=== PATIENT | female | born 1960 | race Caucasian/White ===

== ENCOUNTER 2018-09-23 13:44 | Emergency (ER) | payer MEDICAID, OTHER ==
[~2018-09-23] VITALS: Ht 165.1 cm; Wt 86.3 kg
--- NOTE | 2018-09-23 13:46 | NUR ---
Called patient for triage, patient went to the restroom despite being asked by registration to wait for triage.
--- NOTE | 2018-09-23 13:54 | NUR ---
Patient denies numbness or tingling, no focal weakness. Patient states "I can just feel the buzzing under my skin".
--- NOTE | 2018-09-23 13:55 | NUR ---
EKG performed in triage.
--- NOTE | 2018-09-23 14:08 | NUR ---
SUPPLY CHAIN SYSTEMS MANAGER: PT TO ROOM FROM LOBBY VIA W/C
[2018-09-23] MEDS ORDERED: LORazepam 1MG TABLET ONE (14:23)
[2018-09-23] MEDS ORDERED: ONDANSETRON ODT 4 MG ONE (14:23)
[2018-09-23] MEDS ORDERED: ONDANSETRON ODT 4 MG PO ONE (14:30)
[2018-09-23] MEDS ORDERED: LORazepam 1MG TABLET PO ONE (14:30)
--- NOTE | 2018-09-23 14:32 | NUR ---
THIS FLOAT RN AT BEDSIDE TO PROVIDE PT WITH A WARM BLANKET PER PT REQUEST. PT REFUSING LAB DRAW AT THIS TIME STATING, "I'M TOO ANXIOUS FOR THAT." MADE AWARE.
--- NOTE | 2018-09-23 15:06 | NUR ---
pt laying on gurney awake & anxious (but "feels a little better after the ativan"), responds approp to staff, NAD, comfort measures provided, call light within reach.
--- NOTE | 2018-09-23 15:16 | NUR ---
pt to CT
[2018-09-23 15:24] LABS: BASOPHILS # (AUTO) 0.03 x10^3/uL (0-0.1); BASOPHILS % (AUTO) 0 % (0-1); EOSINOPHILS # (AUTO) 0.11 x10^3/uL (0-0.4); EOSINOPHILS % (AUTO) 1 % (1-7); LYMPHOCYTES # (AUTO) 2.47 x10^3/uL (1-3.4); LYMPHOCYTES % (AUTO) 30 % (22-44); MD NO; MEAN CORPUSCULAR HEMOGLOBIN 32.2 pg (27.0-34.8); MEAN CORPUSCULAR HGB CONC 33.1 g/dL (32.4-35.8); MEAN CORPUSCULAR VOLUME 97.1 fL (80-100); MEAN PLATELET VOLUME 7.4 fL (7.4-10.4); MONOCYTES # (AUTO) 0.65 x10^3/uL (0.2-0.8); MONOCYTES % (AUTO) 8 % (2-9); NEUTROPHILS # (AUTO) 4.87 x10^3/uL (1.8-6.8); NEUTROPHILS % (AUTO) 60 % (42-75); PLATELET COUNT 390 x10^3/uL (130-400); RED BLOOD COUNT 4.79 x10^6/uL (3.82-5.3)
--- NOTE | 2018-09-23 15:25 | NUR ---
pt returned from CT
[2018-09-23 15:32] LABS: ALBUMIN 3.8 g/dL (3.4-5.0); ANION GAP 8 mmol/L (5-15); CALCIUM 8.9 mg/dL (8.5-10.1); CHLORIDE 106 mmol/L (98-107); CREATININE 0.65 mg/dL (0.55-1.02)
[2018-09-23 16:06] VITALS: BP 131/78
--- NOTE | 2018-09-23 16:07 | NUR ---
pt continues laying on gurney awake & anxious, able to doze off at times, responds approp to staff, NAD, comfort measures provided, call light within reach.
--- NOTE | 2018-09-23 16:27 | NUR ---
Patient given discharge instructions and they have confirmed that they understand the instructions. Patient ambulatory with steady gait.
== END 2018-09-23 16:29 | disposition home or self-care (01) ==
LOC: ED 16:23
DX: F29 Unspecified psychosis not due to a substance or known physiological condition (principal); G62.9 Polyneuropathy, unspecified; F17.200 Nicotine dependence, unspecified, uncomplicated; Z88.5 Allergy status to narcotic agent
CPT/HCPCS: 36415; 70450; 80048; 82040; 85025; 93005; 99284; Q0162

== ENCOUNTER 2018-10-09 08:09 | Emergency (ER) | payer MEDICAID, MEDICARE ==
[~2018-10-09] VITALS: Ht 165.1 cm; Wt 83.8 kg
[2018-10-09 08:12] VITALS: BP 122/70
== END 2018-10-09 10:14 | disposition home or self-care (01) ==
LOC: ED 09:19
DX: K59.00 Constipation, unspecified (principal); R42 Dizziness and giddiness; R10.9 Unspecified abdominal pain; R11.0 Nausea; F41.1 Generalized anxiety disorder; Z00.00 Encounter for general adult medical examination without abnormal findings
CPT/HCPCS: 99282

== ENCOUNTER 2019-01-23 12:35 | Emergency (ER) | payer MEDICARE, MEDICAID ==
[~2019-01-23] VITALS: Ht 165.1 cm; Wt 88.0 kg
[~2019-01-23 12:35] MED LIST: ARIP20TA5 PO; FLUO20CA19 PO; FLUO40CA9 PO; GABA-826 PO
[2019-01-23 12:48] VITALS: BP 130/72
--- NOTE | 2019-01-23 13:03 | NUR ---
THIS IS A 58 YO FEMALE COMING IN FOR "I HAVE GENERALIZED ANXIETY DISORDER, AND I'M HAVING A PANIC ATTACK. I FEEL LIKE I HAVE LICE ON MY BODY, AND BUGS CRAWLING ON ME". PATIENT STATES SHE HAS COMMON COLD-LIKE SYMPTOMS FOR THE PAST WEEK. PATIENT STATES SHE WAS HOMELESS FOR THE PAST TEN YEARS, BUT IS CURRENTLY STAYING AT THE [facility]. PATIENT STATES SHE IS CURRENTLY DETOXING FROM ALCOHOL, STATES SHE DRANK A BEER TODAY. PATIENT DOES NOT PRESENT WITH ETOH WITHDRAWL SYMPTOMS, NO LICE SEEN. AWAITING MD ORDERS.
[2019-01-23] MEDS ORDERED: CHLORDIAZEPOXIDE 25 MG CAPSULE ONE (13:09)
[2019-01-23] MEDS ORDERED: BENZONATATE 100 MG CAPSULE ONE (13:21)
[2019-01-23] MEDS ORDERED: BENZONATATE 100 MG CAPSULE PO ONE (13:30)
[2019-01-23] MEDS ORDERED: CHLORDIAZEPOXIDE 25 MG CAPSULE PO PRN (13:30)
--- NOTE | 2019-01-23 13:32 | NUR ---
PATIENT MEDICATED PER EMAR, AND GIVEN FOOD TRAY. PATIENT SITTING ON SIDE OF BED EATING.
--- NOTE | 2019-01-23 14:24 | NUR ---
TASK RN: DC EDUCATION PROVIDED, PT DEMONSTRATES UNDERSTANDING. PT AMBULATED STEADILY TO DC WITH RN. PT REFUSES TAXI VOUCHER
== END 2019-01-23 14:26 | disposition home or self-care (01) ==
LOC: ED 13:18
DX: F10.239 Alcohol dependence with withdrawal, unspecified (principal); F17.200 Nicotine dependence, unspecified, uncomplicated
CPT/HCPCS: 99283

== ENCOUNTER 2019-01-30 13:20 | Emergency (ER) | payer MEDICAID, MEDICARE ==
[~2019-01-30] VITALS: Ht 165.1 cm; Wt 89.0 kg
--- NOTE | 2019-01-30 13:48 | NUR ---
PT AMBULATORY WITH STEADY GAIT TO ROOM. PT STRAIGHT TO BATHROOM. NADN Addendum: 01/30/19 at 1348 by KWKERONERDominic TASK RN:
--- NOTE | 2019-01-30 13:54 | NUR ---
task RN: "I'M EXHAUSTED. I HAVE VERTIGO REAL BAD, I WAS HOMELESS FOR 10 YEARS. I HAVE A PLACE TO LIVE. I NEED SOME MEDICATIONS. I HAVE AN APPT IN FEB AT [facility]. I'M DETOXING OFF MY PSYCHOTROPICS IT'S BEEN 9 DAYS. I'M DETOXING OF ALCOHOL. I HAD TWO SHOTS YESTERDAY. AND HAVE HAD TWO DRINKS A DAY FOR THE LAST FIVE DAYS." PT PLACED ON CONT PULSE OX,NIBP. NO C/O N/V/D, TRAUMA, SYNCOPE, CP, SOB.
[2019-01-30] MEDS ORDERED: LORazepam 1MG TABLET PO ONE (14:00)
[2019-01-30] MEDS ORDERED: LORazepam 1MG TABLET ONE (14:05)
[2019-01-30 14:07] VITALS: BP 140/79
--- NOTE | 2019-01-30 14:10 | NUR ---
TASK RN: PT MEDICATED PER ORDER. PT STATES "THANK YOU SO MUCH. I AM SO GRATEFUL. I WILL GO GET MY MEDICATIONS REFILLED. THAT'S ALL I NEEDED UNTIL MY APPOINTMENT. " TRINITY.
--- NOTE | 2019-01-30 14:22 | NUR ---
Patient/Caregiver given discharge instructions and they have confirmed that they understand the instructions. Patient ambulatory with steady gait. PT LEFT WITH ALL PERSONAL BELONGINGS.
== END 2019-01-30 14:24 | disposition home or self-care (01) ==
LOC: ED 14:00
DX: F25.1 Schizoaffective disorder, depressive type (principal); F41.1 Generalized anxiety disorder; F17.200 Nicotine dependence, unspecified, uncomplicated; F10.239 Alcohol dependence with withdrawal, unspecified; Y90.9 Presence of alcohol in blood, level not specified
CPT/HCPCS: 99283

== ENCOUNTER 2019-02-02 13:54 | Emergency (ER) | payer MEDICARE ==
[~2019-02-02] VITALS: Ht 165.1 cm; Wt 86.4 kg
--- NOTE | 2019-02-02 14:06 | NUR ---
TASK RN: PT BIB [facility] FOR C/O WITHDRAWAL FROM ETOH. PT STATES HER LAST DRINK THIS MORNING UNKNOWN TIME "ONE SHOT OF GIN". PT HAS HAD CP X FEW WEEKS AND ANXIETY. GIVEN 324 ASA COPY WRITER. VS COPY WRITER BP 128/80, HR 80, 98% RA. PT RESTING ON GURNEY. NADN. MONITORS APPLIED.
[2019-02-02] MEDS ORDERED: LORazepam 1MG TABLET PO ONE (15:00)
[2019-02-02] MEDS ORDERED: THIAMINE 100MG TABLET PO ONE (15:00)
[2019-02-02 15:01] LABS: BASOPHILS # (AUTO) 0.03 x10^3/uL (0-0.1); BASOPHILS % (AUTO) 1 % (0-1); EOSINOPHILS # (AUTO) 0.14 x10^3/uL (0-0.4); EOSINOPHILS % (AUTO) 2 % (1-7); LYMPHOCYTES # (AUTO) 1.77 x10^3/uL (1-3.4); LYMPHOCYTES % (AUTO) 24 % (22-44); MD NO; MEAN CORPUSCULAR HGB CONC 34.5 g/dL (32.4-35.8); MEAN CORPUSCULAR VOLUME 95.6 fL (80-100); MEAN PLATELET VOLUME 7.4 fL (7.4-10.4); MONOCYTES # (AUTO) 0.54 x10^3/uL (0.2-0.8); MONOCYTES % (AUTO) 8 % (2-9); NEUTROPHILS # (AUTO) 4.77 x10^3/uL (1.8-6.8); NEUTROPHILS % (AUTO) 66 % (42-75); PLATELET COUNT 373 x10^3/uL (130-400); RED BLOOD COUNT 4.55 x10^6/uL (3.82-5.3); RED CELL DISTRIBUTION WIDTH 14.1 % (9.6-15.2)
[2019-02-02] MEDS ORDERED: LORazepam 1MG TABLET ONE (15:08)
[2019-02-02] MEDS ORDERED: THIAMINE 100MG TABLET ONE (15:08)
[2019-02-02 15:11] LABS: ALANINE AMINOTRANSFERASE 31 U/L (12-78); ALBUMIN 3.5 g/dL (3.4-5.0); ANION GAP 2 mmol/L (5-15); CALCIUM 8.5 mg/dL (8.5-10.1); CHLORIDE 107 mmol/L (98-107); CREATININE 0.63 mg/dL (0.55-1.02)
[2019-02-02 15:15] LABS: ALKALINE PHOSPHATASE 62 U/L (45-117); BILIRUBIN,TOTAL 0.3 mg/dL (0.2-1.0); TROPONIN I < 0.015 ng/mL (0.000-0.045)
[2019-02-02 15:39] VITALS: BP 137/98
== END 2019-02-02 16:37 | disposition home or self-care (01) ==
LOC: ED 16:05
DX: J15.9 Unspecified bacterial pneumonia (principal); F10.239 Alcohol dependence with withdrawal, unspecified; R45.4 Irritability and anger; F20.9 Schizophrenia, unspecified; F32.9 Major depressive disorder, single episode, unspecified; F41.1 Generalized anxiety disorder; Y90.9 Presence of alcohol in blood, level not specified
CPT/HCPCS: 36415; 71045; 80053; 80307; 83690; 84484; 85025; 93005; 99284

== ENCOUNTER 2019-03-05 07:53 | Emergency (ER) | payer MEDICARE ==
[~2019-03-05] VITALS: Ht 165.1 cm; Wt 89.4 kg
[2019-03-05 07:57] VITALS: BP 128/94
--- NOTE | 2019-03-05 08:14 | NUR ---
PT C/O RIGHT SIDE NECK PAIN RADIATES DOWN RIGHT SIDE OF BACK AND RIGHT LEG PAIN. DENIES TRAUMA STATES THAT SHE HAS BEEN HOMELESS FOR 9 YEARS AND BEEN CARRYING HER BACKPACK AROUND AND HURT HER BACK LIFITING THE BACKPACK. PT WITH POOR HYGIENE, SMELLS OF URINE. STATES SHE IS SLEEPING ON THE GROUND. I WILL PROVIDE PT WITH A SET OF CLEAN CLOTHES AT D/C.
[2019-03-05] MEDS ORDERED: METHOCARBAMOL 750 MG TABLET PO ONE (08:30)
[2019-03-05] MEDS: KETOROLAC 30 MG/1 ML IM ONE ×2 (08:30→08:43)
[2019-03-05] MEDS ORDERED: KETOROLAC 30 MG/1 ML ONE (08:41)
[2019-03-05] MEDS ORDERED: METHOCARBAMOL 750 MG TABLET ONE (08:41)
--- NOTE | 2019-03-05 08:44 | NUR ---
PT MED WITH ROBAXIN NOTED. PT REFUSES TORADOL. MEAL TRAY ORDERED.
--- NOTE | 2019-03-05 09:21 | NUR ---
MEAL TRAY PROVIDED. CLEAN CLOTHES PROVIDED AND PT DRESSED W/O DIFFICULTY. PT VEBALIZES "THAT MEDICINE HELPED"
--- NOTE | 2019-03-05 09:24 | NUR ---
Patient/Caregiver given discharge instructions and they have confirmed that they understand the instructions. SNF AND MEDICATIONS ASSISSTANCE INFORMATION PROVIDED. PT FINISHING HER BREAKFAST TRAY AND THEN D/C
== END 2019-03-05 09:25 | disposition home or self-care (01) ==
LOC: ED 08:10
DX: S29.012A Strain of muscle and tendon of back wall of thorax, initial encounter (principal); M54.6 Pain in thoracic spine; M54.5 Low back pain; G89.29 Other chronic pain; Z95.0 Presence of cardiac pacemaker; X58.XXXA Exposure to other specified factors, initial encounter; Y93.89 Activity, other specified; Y92.89 Other specified places as the place of occurrence of the external cause; Y99.8 Other external cause status
CPT/HCPCS: 99282; 99283; J1885

== ENCOUNTER 2019-04-02 16:12 | Emergency (ER) | payer MEDICARE ==
[~2019-04-02] VITALS: Ht 165.1 cm; Wt 90.9 kg
--- NOTE | 2019-04-02 17:05 | NUR ---
parole board member note: Vamsi requested from nursing ops. Addendum: 04/02/19 at [address] Elizondo is declining pt due to no following the program and leaving AMA every time when being admitted, he beleives thats she will do better at [facility]
[2019-04-02 17:12] VITALS: BP 117/76
--- NOTE | 2019-04-02 17:15 | NUR ---
LATE NOTE: 3 BAGS OF BELONGINS PLACED INTO SECURE LOCKER.
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
[2019-04-02 17:27] LABS: AMPHETAMINE SCREEN, URINE Negative (Negative); BARBITURATE SCREEN, URINE Negative (Negative); BENZODIAZEPINE SCREEN, URINE Negative (Negative); CANNABINOID SCREEN, URINE Negative (Negative); COCAINE SCREEN, URINE Negative (Negative); METHADONE SCREEN, URINE Negative (Negative); OPIATE SCREEN, URINE Negative (Negative)
--- NOTE | 2019-04-02 17:37 | NUR ---
DINNER TRAY ORDERED FOR PT.
[2019-04-02 17:40] LABS: BASOPHILS # (AUTO) 0.03 x10^3/uL (0-0.1); BASOPHILS % (AUTO) 0 % (0-1); EOSINOPHILS # (AUTO) 0.13 x10^3/uL (0-0.4); EOSINOPHILS % (AUTO) 2 % (1-7); LYMPHOCYTES # (AUTO) 2.67 x10^3/uL (1-3.4); LYMPHOCYTES % (AUTO) 30 % (22-44); MD NO; MEAN CORPUSCULAR HEMOGLOBIN 31.5 pg (27.0-34.8); MEAN CORPUSCULAR HGB CONC 33.4 g/dL (32.4-35.8); MEAN CORPUSCULAR VOLUME 94.3 fL (80-100); MONOCYTES # (AUTO) 0.86 x10^3/uL (0.2-0.8); MONOCYTES % (AUTO) 10 % (2-9); NEUTROPHILS # (AUTO) 5.09 x10^3/uL (1.8-6.8); NEUTROPHILS % (AUTO) 58 % (42-75); PLATELET COUNT 393 x10^3/uL (130-400); RED BLOOD COUNT 4.82 x10^6/uL (3.82-5.3)
[2019-04-02 17:43] LABS: ALBUMIN 3.6 g/dL (3.4-5.0); ANION GAP 9 mmol/L (5-15); CALCIUM 8.8 mg/dL (8.5-10.1); CHLORIDE 107 mmol/L (98-107); CREATININE 0.58 mg/dL (0.55-1.02); SALICYLATE LEVEL 2.6 mg/dL (2.8-20.0)
--- NOTE | 2019-04-02 17:56 | NUR ---
PT PROVIDED WITH DINNER TRAY. DENIES FURTHER NEEDS.
--- NOTE | 2019-04-02 17:57 | NUR ---
ROOM SECURE. SITTER AT BEDSIDE.
--- NOTE | 2019-04-02 17:57 | NUR ---
UNABLE TO APPROPRIATELY FILL MED REC OUT PT IS UNCOOPERATIVE WITH THIS QUESTION.
--- NOTE | 2019-04-02 18:37 | NUR ---
THROUGHPUT RN: 3E [facility] NOTIFIED OF PT.
--- NOTE | 2019-04-02 18:51 | NUR ---
REPORT FROM JUAN R MOISE, ASSUMING CARE OF PT AT THIS TIME
--- NOTE | 2019-04-02 20:25 | NUR ---
PT RESTING ON GURNEY PROVIDED WITH WATER AND SNACKS REQUESTED. SITTER REMAINS IN HALLWAY FOR SAFETY.
--- NOTE | 2019-04-02 20:26 | NUR ---
Pt has been declined by psychiatrist for admission to .
--- NOTE | 2019-04-02 22:29 | NUR ---
PT TO RESTROOM AMB WITH STEADY GAIT NO ASSIST REQUIRED. PT OFFERED ICE PACK FOR BACK DISCOMFORT, PT REFUSED. WHEN ASKED IF PT HAS ANY OTHER NEEDS PT STS NO WHEN WILL I SEE SOMEONE. PT INFORMED PT HAS BEEN SEEN BY PROVIDER AND THE PLAN IS TO HELP HER GET STABILIZED AND FIND PLACEMENT FOR PSYCH HELP. PT BECAME AGGITATED WITH RN STS "GET OUT OF HERE YOU BITCH YOU'RE LYING. JUST GET THE FUCK OUT."
--- NOTE | 2019-04-02 22:42 | NUR ---
PT NOW RESTING ON [facility] EYES CLOSED, RESP EVEN AND UNLABORED ALEKN
--- NOTE | 2019-04-02 23:20 | NUR ---
REFERRAL WAS FAXED TO [facility], AND [facility]
--- NOTE | 2019-04-03 00:18 | NUR ---
[facility] ACCEPTING DOC DR. LACEY.
--- NOTE | 2019-04-03 02:13 | NUR ---
JOSE MARIA JARRELL. READY AT ANYTIME.
== END 2019-04-03 02:50 ==
LOC: ED 16:58
DX: R45.851 Suicidal ideations (principal); F32.9 Major depressive disorder, single episode, unspecified; F41.1 Generalized anxiety disorder; F25.9 Schizoaffective disorder, unspecified
CPT/HCPCS: 36415; 80048; 80307; 82040; 85025; 99285

== ENCOUNTER 2019-06-06 15:46 | Emergency (ER) | payer MEDICARE ==
[~2019-06-06] VITALS: Ht 165.1 cm; Wt 87.9 kg
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
[2019-06-06 16:05] VITALS: BP 140/79
--- NOTE | 2019-06-06 16:12 | NUR ---
PT AMBULATED TO THE BR W/ A STEADY GAIT. URINE COLLECTED. PT IS CONNECTED TO ALL MONITORING. PROVIDED BLANKET AND EMESIS BAG. AWAITING ED EVAL.
--- NOTE | 2019-06-06 16:36 | NUR ---
pt. left AMA after being denied sae stating "if you're not gonna help me then i'm just gonna leave".
--- NOTE | 2019-06-06 16:39 | NUR ---
PT LEFT AMA PRIOR TO RECEIVING ANY PAPERWORK OR EDUCATION.
== END 2019-06-06 16:40 | disposition left against medical advice (07) ==
LOC: ED 16:15
DX: F41.1 Generalized anxiety disorder (principal); Z77.098 Contact with and (suspected) exposure to other hazardous, chiefly nonmedicinal, chemicals; R07.89 Other chest pain; R42 Dizziness and giddiness; M79.10 Myalgia, unspecified site; F20.9 Schizophrenia, unspecified; F17.200 Nicotine dependence, unspecified, uncomplicated
CPT/HCPCS: 93005; 99283

== ENCOUNTER 2019-06-13 16:05 | Emergency (ER) | payer MEDICARE, MEDICAID ==
[~2019-06-13] VITALS: Ht 165.1 cm; Wt 87.9 kg
[2019-06-13 16:07] VITALS: BP 156/75
== END 2019-06-13 16:39 | disposition home or self-care (01) ==
LOC: ED 16:21
DX: K04.7 Periapical abscess without sinus (principal); K02.9 Dental caries, unspecified; F20.9 Schizophrenia, unspecified
CPT/HCPCS: 99283

== ENCOUNTER 2019-06-21 17:17 | Emergency (ER) | payer MEDICARE, MEDICAID ==
[~2019-06-21] VITALS: Ht 165.1 cm; Wt 85.5 kg
[2019-06-21 17:27] VITALS: BP 124/69
== END 2019-06-21 17:55 | disposition home or self-care (01) ==
LOC: ED 17:46
DX: R05 Cough (principal); F41.1 Generalized anxiety disorder; R51 Headache; J02.9 Acute pharyngitis, unspecified; F20.9 Schizophrenia, unspecified; F17.200 Nicotine dependence, unspecified, uncomplicated
CPT/HCPCS: 99283; Q0177

== ENCOUNTER 2019-06-30 17:22 | Emergency (ER) | payer MEDICAID, MEDICARE ==
[~2019-06-30] VITALS: Ht 165.1 cm; Wt 86.7 kg
[2019-06-30 17:25] VITALS: BP 104/82
--- NOTE | 2019-06-30 17:47 | NUR ---
JULIAN NOTE "PT REPORTS "I DRANK A GALLON OF MIRACLE GROW. I THOUGHT IT WAS WATER. IT HAPPENED A COUPLE OF DAYS. EVERYTHING IS IRRIDESCENT AND I'M HALLUCINATING. I HAD A HEART ATTACK TODAY. I AND CAME BACK TO [facility]"." PT STATES SHE ACCIDENTLY DRANK MIRACLE GROW TODAY, STATES SHE THOUGHT IT WAS DRINKING WATER, DENIES SA/SI. PT ANXIOUS, REPEATING HER STORY OVER AND OVER
[2019-06-30 18:20] LABS: BASOPHILS # (AUTO) 0.02 x10^3/uL (0-0.1); BASOPHILS % (AUTO) 0 % (0-1); EOSINOPHILS % (AUTO) 2 % (1-7); LYMPHOCYTES # (AUTO) 2.47 x10^3/uL (1-3.4); LYMPHOCYTES % (AUTO) 37 % (22-44); MD NO; MEAN CORPUSCULAR HEMOGLOBIN 31.7 pg (27.0-34.8); MEAN CORPUSCULAR HGB CONC 33.5 g/dL (32.4-35.8); MEAN CORPUSCULAR VOLUME 94.7 fL (80-100); MEAN PLATELET VOLUME 8.1 fL (7.4-10.4); MONOCYTES # (AUTO) 0.56 x10^3/uL (0.2-0.8); MONOCYTES % (AUTO) 8 % (2-9); NEUTROPHILS # (AUTO) 3.48 x10^3/uL (1.8-6.8); NEUTROPHILS % (AUTO) 53 % (42-75); PLATELET COUNT 326 x10^3/uL (130-400); RED BLOOD COUNT 4.43 x10^6/uL (3.82-5.3); RED CELL DISTRIBUTION WIDTH 13.6 % (9.6-15.2)
[2019-06-30 18:24] LABS: ALANINE AMINOTRANSFERASE 35 U/L (12-78); ALBUMIN 3.5 g/dL (3.4-5.0); ANION GAP 7 mmol/L (5-15); CALCIUM 8.7 mg/dL (8.5-10.1); CHLORIDE 106 mmol/L (98-107); CREATININE 0.61 mg/dL (0.55-1.02); SALICYLATE LEVEL 2.8 mg/dL (2.8-20.0)
[2019-06-30 18:26] LABS: ALKALINE PHOSPHATASE 54 U/L (45-117); BILIRUBIN,TOTAL 0.2 mg/dL (0.2-1.0)
--- NOTE | 2019-06-30 18:35 | NUR ---
PT UP TO BR WITH STEADY GAIT, PT AGITATED, STATES "IM FUCKING HOMELESS, IM STARVING, I HAVENT EATEN IN 4 DAYS" PT DID NOT PROVIDE RN WITH UDS AT THIS TIME, ORDERED PT A MEAL TRAY, WILL ATTEMPT AT LATER TIME
--- NOTE | 2019-06-30 19:19 | NUR ---
REPORT RECEIVED FROM JOSE MARIA CRAMER. MEAL TRAY JUST DELIVERED TO PATIENT
== END 2019-06-30 19:54 | disposition home or self-care (01) ==
LOC: ED 19:21
DX: F20.9 Schizophrenia, unspecified (principal); F17.200 Nicotine dependence, unspecified, uncomplicated
CPT/HCPCS: 36415; 80053; 80307; 85025; 99283; 99284